=== PATIENT | female | born 1985 | race Caucasian/White ===

== ENCOUNTER 2016-08-29 14:13 | Outpatient (CLI) | payer OTHER ==
[~2016-08-29] VITALS: Ht 160 cm; Wt 73.5 kg
[2016-08-29 14:26] VITALS: BP 140/81
[2016-08-29 14:47] VITALS: BP 129/86
[2016-08-29 15:17] LABS: EOSINOPHIL (%) 1.6 % (0-5); EOSINOPHIL COUNT 0.1 K/uL (0-0.3); IMMATURE GRANULOCYTE (%) 0.3 % (0.0-0.7); INSTRUMENT ABS NEUTROPHIL CT 6.2 K/uL; LYMPHOCYTE COUNT 2.2 K/uL (1.0-2.8); MCH 23.6 PG (29.0-34.0); MCHC 30.6 G/DL (30.0-36.0); MCV 76.9 FL (83-99); MEAN PLAT.VOLUME 11.7 uM^3 (9.5-12.4); MONOCYTE COUNT 0.4 K/uL (0-0.8); NEUTROPHIL (%) 69.1 % (45-76); NEUTROPHIL COUNT 6.2 K/uL (1.8-6.4); PLATELET COUNT 174 K/uL (156-360); RBC DIS.WIDTH-CV 14.5 % (11.8-14.6); RED BLOOD COUNT 4.16 M/uL (3.80-5.20)
[2016-08-29 15:19] VITALS: BP 130/84
[2016-08-29 15:27] LABS: ANION GAP 9 MEQ/L (2-14); CHLORIDE 107 MEQ/L (99-109); POTASSIUM 4.3 MEQ/L (3.7-5.4); SAMPLE HEMOLYSIS CHECK 0; SAMPLE ICTERIC CHECK 0; SAMPLE LIPEMIA CHECK 0; SODIUM 139 MEQ/L (136-147); TOTAL BILIRUBIN 0.3 MG/DL (0.0-1.0)
[2016-08-29 15:33] LABS: ALKALINE PHOSPHATASE 143 IU/L (3-129); GFR ESTIMATE (CALCULATED) > 59 mL/min/; GLUCOSE 75 mg/dL (70-99); UREA NITROGEN (BUN) 7 mg/dL (9-23)
[2016-08-29 15:46] VITALS: BP 132/74
[2016-08-29] MEDS ORDERED: METHADONE10 MG PO (16:21)
[2016-08-29] MEDS ORDERED: VYVANSE50 MG PO (16:26)
[2016-08-29] MEDS ORDERED: KLONOPIN1 MG PO (16:26)
[2016-08-29] MEDS ORDERED: SYNTHROID100 MCG PO (16:26)
[2016-08-29 16:57] LABS: UR CREATININE CONCENTRATION 275.2 MG/DL
== END 2016-08-29 17:50 | disposition home or self-care (01) ==
LOC: LDRP-OP 14:13 → 2WEST 14:14 → LDRP-OP 10-20 09:11
PROVIDERS: Midwife
DX: O13.3 Gestational [pregnancy-induced] hypertension without significant proteinuria, third trimester (principal); Z3A.36 36 weeks gestation of pregnancy; O36.5930 Maternal care for other known or suspected poor fetal growth, third trimester, not applicable or unspecified; O99.283 Endocrine, nutritional and metabolic diseases complicating pregnancy, third trimester; E03.9 Hypothyroidism, unspecified; O99.323 Drug use complicating pregnancy, third trimester; F11.20 Opioid dependence, uncomplicated; O09.293 Supervision of pregnancy with other poor reproductive or obstetric history, third trimester
CPT/HCPCS: 59025; 80053; 82570; 84156; 85025; 87086; G0378

== ENCOUNTER 2016-09-10 02:51 | Inpatient (IN) | payer OTHER ==
[~2016-09-10 02:51] MED LIST: KLONOPIN1 MG PO; METHADONE10 MG PO; SYNTHROID100 MCG PO; VYVANSE50 MG PO
[2016-09-10] MEDS ORDERED: PERCOCET 5/31 TABLET PO (04:00)
[2016-09-10] MEDS ORDERED: MOTRIN800 MG PO (04:00)
[2016-09-10 04:25] VITALS: BP 131/87
[2016-09-10 04:40] LABS: CHLORIDE 106 mEq/L (99-109); POTASSIUM 3.9 mEq/L (3.7-5.4); SODIUM 135 mEq/L (136-147)
[2016-09-10 04:42] LABS: GLUCOSE 83 mg/dL (70-99)
[2016-09-10 04:43] LABS: ANION GAP 10 MEQ/L (2-14)
[2016-09-10 04:44] LABS: TOTAL BILIRUBIN 0.4 mg/dL (0.0-1.0)
[2016-09-10] MEDS ORDERED: METHADONE10 MG PO ×2 (04:44→04:45)
[2016-09-10 04:46] LABS: ALKALINE PHOSPHATASE 167 IU/L (3-129); GFR ESTIMATE (CALCULATED) > 59 mL/min/
[2016-09-10 04:47] LABS: UREA NITROGEN (BUN) 9 mg/dL (9-23)
[2016-09-10] MEDS ORDERED: VYVANSE50 M1 PO (04:47)
[2016-09-10 04:50] LABS: EOSINOPHIL (%) 1.2 % (0-5); EOSINOPHIL COUNT 0.1 K/uL (0-0.3); HEMATOCRIT 32.7 % (36.0-46.0); IMMATURE GRANULOCYTE (%) 0.4 % (0.0-0.7); INSTRUMENT ABS NEUTROPHIL CT 5.2 K/uL; LYMPHOCYTE COUNT 2.6 K/uL (1.0-2.8); MCH 23.6 PG (29.0-34.0); MCHC 31.8 G/DL (30.0-36.0); MCV 74.1 FL (83-99); MEAN PLAT.VOLUME 12.2 uM^3 (9.5-12.4); MONOCYTE (%) 3.8 % (3-12); MONOCYTE COUNT 0.3 K/uL (0-0.8); NEUTROPHIL (%) 62.9 % (45-76); NEUTROPHIL COUNT 5.2 K/uL (1.8-6.4); PLATELET COUNT 174 K/uL (156-360); RBC DIS.WIDTH-SD 39.3 % (39-53); RED BLOOD COUNT 4.41 M/uL (3.80-5.20); WHITE BLOOD COUNT 8.2 K/uL (4.1-10.2)
[2016-09-10 05:15] LABS: ADD MIUA? YES; BILIRUBIN NEGATIVE; BLOOD NEGATIVE; COLOR YELLOW ((YELLOW)); GLUCOSE (STRIP) NEGATIVE; KETONES NEGATIVE; LEUKOCYTES TRACE; NITRITE NEGATIVE; PROTEIN (STRIP) NEGATIVE; SPECIFIC GRAVITY 1.008 (1.000-1.030); UROBILINOGEN 0.2 MG/DL (0.2-1.0)
[2016-09-10 05:27] LABS: BACTERIA NONE SEEN /HPF; EPITHELIAL CELLS RARE /HPF; MUCUS TRACE /LPF; RED BLOOD CELLS 0-5 /HPF (0-5); UCUL ADDED? NO; WHITE BLOOD CELLS 0-5 /HPF (0-5)
[2016-09-10 05:32] LABS: BARBITUATES QUANT VALUE 0 NG/ML; BENZODIAZEPINES QUANT VALUE 0 NG/ML; BENZODIAZEPINES, URINE SCREEN Negative (200 ng/mL); MARIJUANA QUANT VALUE 0 NG/ML; OPIATES QUANTITATIVE VALUE 0 NG/ML; PHENCYCLIDINE QUANT VALUE 0 NG/ML
[2016-09-10 07:07] VITALS: BP 139/63
[2016-09-10 10:07] VITALS: BP 138/74
[2016-09-10 15:52] VITALS: BP 129/78
[2016-09-10 22:37] VITALS: BP 125/65
[2016-09-11 04:58] LABS: EOSINOPHIL (%) 1.3 % (0-5); EOSINOPHIL COUNT 0.1 K/uL (0-0.3); HEMATOCRIT 29.4 % (36.0-46.0); IMMATURE GRANULOCYTE (%) 0.4 % (0.0-0.7); INSTRUMENT ABS NEUTROPHIL CT 4.5 K/uL; LYMPHOCYTE COUNT 4.1 K/uL (1.0-2.8); MCH 23.5 PG (29.0-34.0); MCHC 31.3 G/DL (30.0-36.0); MEAN PLAT.VOLUME 11.9 uM^3 (9.5-12.4); MONOCYTE (%) 6.3 % (3-12); MONOCYTE COUNT 0.6 K/uL (0-0.8); NEUTROPHIL COUNT 4.5 K/uL (1.8-6.4); PLATELET COUNT 161 K/uL (156-360); RBC DIS.WIDTH-CV 15.5 % (11.8-14.6); RBC DIS.WIDTH-SD 40.7 % (39-53); RED BLOOD COUNT 3.92 M/uL (3.80-5.20); WHITE BLOOD COUNT 9.3 K/uL (4.1-10.2)
[2016-09-11 07:23] VITALS: BP 129/69
[2016-09-11] MEDS ORDERED: FERROUS SULFAT325 MG PO (11:55)
[2016-09-11] MEDS ORDERED: IBUPROFEN800 MG PO (11:55)
[2016-09-11 22:32] VITALS: BP 140/83
[2016-09-12 07:39] VITALS: BP 127/78
[2016-09-12 15:49] VITALS: BP 126/84
== END 2016-09-12 17:40 | disposition home or self-care (01) | DRG 775 ==
LOC: LDRP-OP 02:51 → 2WEST 02:52 → LDRP-OP 10-20 18:36
PROVIDERS: Obstetrics & Gynecology
PROC: 10E0XZZ Delivery of Products of Conception, External Approach (ICD-10-PCS; principal; 2016-09-10)
DX: O34.219 Maternal care for unspecified type scar from previous cesarean delivery (principal); O99.02 Anemia complicating childbirth; D62 Acute posthemorrhagic anemia; O99.324 Drug use complicating childbirth; F11.20 Opioid dependence, uncomplicated; O99.284 Endocrine, nutritional and metabolic diseases complicating childbirth; E03.9 Hypothyroidism, unspecified; O99.344 Other mental disorders complicating childbirth; F31.30 Bipolar disorder, current episode depressed, mild or moderate severity, unspecified; O99.334 Smoking (tobacco) complicating childbirth; F17.200 Nicotine dependence, unspecified, uncomplicated; O36.5930 Maternal care for other known or suspected poor fetal growth, third trimester, not applicable or unspecified; O13.4 Gestational [pregnancy-induced] hypertension without significant proteinuria, complicating childbirth; O99.214 Obesity complicating childbirth; E66.9 Obesity, unspecified; Z3A.38 38 weeks gestation of pregnancy; Z37.0 Single live birth
CPT/HCPCS: 80053; 80306 90; 81003; 85025; 86850; 86900; 86901; J0690; J2274; J7120